=== PATIENT | female | born 1950 | race African-American/Black ===

== ENCOUNTER 2025-04-13 11:47 | Outpatient (AMB) | payer MEDICARE, SELFPAY ==
--- NOTE | 2025-04-13 11:59 | A.OFFVIS_ITS ---
Intake Visit Reasons: 2 Month follow up Allergies No Known Allergies Allergy (Verified 04/06/25 07:20) Medication List - Last Reconciled 04/13/25 by Dominga Nina MD atorvastatin 40 mg PO DAILY cetirizine 10 mg PO DAILY cyanocobalamin (vitamin B-12) 500 mcg PO QMONTH donepezil 10 mg PO DAILY glipizide ER 5 mg PO DAILY levothyroxine 50 mcg PO DAILY lisinopril-hydrochlorothiazide 20-25 mg 1 tab PO DAILY nifedipine ER 30 mg PO DAILY paroxetine HCl 20 mg PO DAILY HPI Comments Details: 74 yr old woman with progressive memory loss over 6 years , wrse in the last 2 years. Still lives alone. Has not driven since 2020. Sister and friend help with gracerires but otherwise is independent. At time sconfused an ddelusioanl . She does not have good insight into her memory issues.? No hazards or accidents around house. Denies syncope, weakness, numbness, tingling, CP, SOB, or any other acute medical complaints at this time. [facility] Medical History (Updated 04/13/25 @ 12:04 by Dominga Nina MD) Alzheimer dementia Hypertension DAVID (obstructive sleep apnea) MCI (mild cognitive impairment) Review of Systems Const Details: Sleep:? Difficulty getting to sleepdenies.? Difficulty maintaining sleepadmits.? Urge to move legsdenies.? Teeth grindingadmits.? Shouting or Kicking during sleepde nies.? Abnormal behavior during sleepdenies.? Excessive sleepdenies,?admits.? Snoringadmits.? Daytime sleepinessdenies. ???General/Constitutional:? Change in appetitedenies.? Chillsdenies.? Fatigueadmits.? Feverdenies.? Weight gaindenies.? Weight lossadmits. ???Ophthalmologic:? Blurred visiondenies,?admits.? Diminished visual acuitydenies. ???ENT:? Stuffinessdenies.? Decreased hearingadmits.? Dry mouthdenies.? Ear paindenies.? Nosebleeddenies.? Ringing in the earsdenies.? Sinus painadmits.? Sore throat denies.? Swollen glandsdenies. ???Endocrine:? Cold intolerancedenies.? Excessive thirstdenies.? Frequent urinationdenies.? Heat intolerancedenies. ???Respiratory:? Shortness of breathadmits.? Chest paindenies.? Coughdenies. ???Breast:? Breast lumpdenies.? Nipple dischargedenies. ???Cardiovascular:? Chest pain at restdenies.? Chest pain with exertiondenies.? Claudicationdenies .? Dizzinessdenies.? Fluid accumulation in the legsdenies.? Irregular heartbeat denies.? Palpitationsdenies. ???Gastrointestinal:? Abdominal paindenies.? Constipationdenies.? Diarrheadenies.? Difficulty swallowingdenies.? Heartburndenies.? Nauseadenies.? Rectal bleedingdenies. ???Hematology:? Easy bruisingdenies.? Prolonged bleedingdenies. ???Genitourinary:? Frequent urinationdenies.? Urgencydenies.? Incontinencedenies.? Erectile Dysf unctiondenies. ???Musculoskeletal:? Neck painadmits.? Back painadmits.? Muscle achesadmits.? Painful jointsadmits.? Sciaticadenies.? Weaknessdenies. ???Podiatric:? Difficulty walkingdenies.? Foot numbnessdenies. ???Neurologic:? Difficulty swallowingdenies.? Balance difficultydenies.? Coordinationnormal.? Difficulty speakingdenies.? Dizzinessdenies.? Faintingdenies.? Gait abnormality denies.? Headachedenies.? Loss of strengthdenies.? Loss of use of extremity denies.? Low back paindenies.? Memory lossadmits.? Seizuresdenies.? Ticsdenies.? Tingling/Numbnessdenies.? Transient loss of visiondenies.? Tremordenies. ???Psychiatric:? Anxietyadmits.? Auditory/visual hallucinationsdenies.? Delusionsadmits.? Depressed moodadmits.? Stressorsadmits.? Substance abusedenies.? Suicidal thoughtsdenies. Physical Exam Neuro Other: Neurological: Abnormal neurological findings:??MMS 20 /30 Oriented to person. Oriented to place. 0/3 recall..?Mental Status:??alert and oriented X person and place .??Cranial Nerves:??Pupils are equal, round and reactive to light. Fundoscopy shows normal disc bilaterally. External ocular muscles are intact. Visual coates are full, no ptosis. Face is symmetrical, no facial weakness or droop. Facial sensations are normal. Tongue protrudes in midline. Palate elevates symmetrically. Shoulder shrugging is normal..?Motor Examination:??Normal muscle tone, bulk and strength,?No atrophy or fasciculations,?No drift of the extended upper extremities,?Deep tendon reflexes are 2+?,?Plantars are flexor?.?Straight Leg Raising:??90 degrees.?Sensory Exam:??Normal light touch, temperature, pinprick, vibration and joint-position sensations?,?Rhomberg sign is absent.?Coordination:??no ataxia,?no titubation,?ymfzmz-my-mxuz, fcdr-[id number]-lsop test and rapid alternating movements were normal.?Gait Exam:??Within normal limits.?Cerebellar Signs:??Vbwqju-[id number] and kauj-sn-uzzv is normal,?no dysdiadochokinesia?.?Extrapyramidal System:??No tremor, rigidity with normal facial expressions,?No bradykinesia, no bradyphrenia. Normal arm swing and posture. No propulsion or retropulsion.?Speech:??Normal,?no dysphasia or dysarthria..? Mini Mental Status Exam: Level of Consciousness:??Alert.?Orientation:??Does not know correct year, month,? date , day, or season,?Knows correct city, and state. Does not know correct?floor.?Registration:??Able to register 3 objects.?Attention:??Serial 7's performed accurately to 79.?Recall:??Able to recall 0 out of 3 objects.?Language:??Normal spontaneous speech, fluency, repetition,naming, comprehension, reading and writing.?Total Score:??20/30.? General Examination: GENERAL APPEARANCE:??normal,?in no acute distress.?HEAD:??normocephalic,?atrau matic.?EYES:??sclera non-icteric,?conjunctiva clear.?EARS:??auditory canal clear,?tympanic membrane intact, clear.?NOSE:??no lesions.?ORAL CAVITY:??gums normal,?mucosa moist,?no lesions.?THROAT:??clear.?NECK/THYROID:??no cervical lymphadenopathy,?thyroid normal,?neck supple, full range of motion,?no carotid bruit.?SKIN:??no rashes,?no significant birthmarks.?HEART:??S1, S2 normal,?no murmurs.?LUNGS:??clear anteriorly and posteriorly.?CHEST:??no gross rib deformity,?clear to auscultation.?BACK:??normal exam of spine.?EXTREMITIES:??no edema.?PERIPHERAL PULSES:??normal.?PSYCH:??alert, as above.? Results Reviewed Results Reviewed: 12/28/24 EEG Minimally abnormal with intermittent bifrontal theta slowing. on background of Low volatge 8 Hz alpha. Assessment & Plan Assessment & Plan (1) Alzheimer dementia: Code(s): G30.9 - Alzheimer's disease, unspecified; F02.80 - Dementia in other diseases classified elsewhere, unspecified severity, without behavioral disturbance, psychotic disturbance, mood disturbance, and anxiety Category: Medical (2) DAVID (obstructive sleep apnea): Code(s): G47.33 - Obstructive sleep apnea (adult) (pediatric) Category: Medical Plan add Namenda 10mg bid. Medications: New memantine 10 mg PO BID 60 tabs 5RF 30 days Coding Level of Care Code Est Pt Level 4 (94489) Diagnoses Alzheimer dementia G30.9; F02.80 DAVID (obstructive sleep apnea) G47.33
== END 2025-04-13 12:16 | disposition home or self-care (01) ==
LOC: HO.HSM 11:48
PROVIDERS: PCP Physician Assistant; Visit Provider Psychiatry & Neurology Neurology
DX: G30.9 Alzheimer's disease, unspecified (principal); F02.80 Dementia in other diseases classified elsewhere, unspecified severity, without behavioral disturbance, psychotic disturbance, mood disturbance, and anxiety; G47.33 Obstructive sleep apnea (adult) (pediatric)
CPT/HCPCS: 99214

== ENCOUNTER → 2025-04-13 11:47 | Outpatient (BNVA) | payer OTHER, SELFPAY | PROVIDERS: PCP Physician Assistant; Visit Provider Psychiatry & Neurology Neurology | DX: G47.33 Obstructive sleep apnea (adult) (pediatric) (principal); G30.9 Alzheimer's disease, unspecified; F02.80 Dementia in other diseases classified elsewhere, unspecified severity, without behavioral disturbance, psychotic disturbance, mood disturbance, and anxiety | CPT/HCPCS: 99212 ==